=== PATIENT | male | born 1950 | race Caucasian/White ===

== ENCOUNTER 2023-12-03 21:07 | Observation (INO) | payer MEDICARE, BC, SELFPAY ==
[2023-12-03] VITALS (8 sets, daily range): BP systolic 161–193; BP diastolic 92–100; PULSE 54; BMI 28.1; BMI 27.9
--- NOTE | 2023-12-03 19:17 | ED.GENMED ---
History of Present Illness
General
Chief Complaint: Headache
Source: patient and spouse
Exam Limitations: none
Time Seen by Provider: 12/03/23 18:58
Travel History
Have you had any contact with someone who has COVID-19?: No
Do you have any symptoms of coronavirus? Fever > 100 degrees, chills, cough, shortness of breath, sore throat, loss of taste or smell, muscle aches, or headache?: No
History of Present Illness
History of Present Illness:
See MDM
Past History
Past History
ED Past Medical History: HTN
ED Past Surgical History: None
Social History
Tobacco: Non-smoker
Alcohol: None
Phy Exam
Physical Exam
Physical Exam:
See MDM
Scores
NIH Stroke Score
Level of Consciousness: 0 - Alert
LOC Questions: 0-Answers both correctly
LOC Commands: 0-Performs both correctly
Best Horizontal Gaze: 0-Normal
Visual Roe: 0=Normal, no visual loss
Facial Palsy: 0=Normal, symmetrical
Motor - Right Arm: 0=No drift 10 seconds
Motor - Left Arm: 0=No drift 10 seconds
Motor - Right Le-No drift 5 seconds
Motor - Left Le-No drift 5 seconds
Limb Ataxia: 0-Absent
Sensation: 0-Normal
Best Language: 0-No aphasia
Dysarthria: 0-Normal
Extinction and Inattention: 0-No abnormality
Total Score:: 0
Course
Orders/Labs/Results
Orders:
Orders
12/03/23 16:[address] [CT Head W/o Iv Contrast] Urgent
Comment:
Reason For Exam: HEADACHE/DOUBLE VISION
12/03/23 19:18
Complete Blood Count/With Diff Urgent
Comprehensive Metabolic Panel Urgent
Magnesium Urgent
12/03/23 20:49
Admit/Transfer Patient As Directed
Co-Sign Provider:
Level of Care: Observation services
Assign to:: Telemetry
Physician / Group: darek hoffman
Diagnosis: TIA
Reason for Telemetry: CVA/TIA
Date to Stop Telemetry: 12/06/23
Time to Stop Telemetry: 11:00
12/03/23 20:50
Code Status As Directed
Resuscitation Status: Full Code
12/06/23 11:00
DC Protocol for Telemetry ONCE
Abnormal Lab Results
12/03/23
19:18
RBC 3.89 L 10^6/uL
(4.70-6.10)
Hct 35.3 L %
(39.0-52.0)
MCH 33.7 H pg
(27.0-31.0)
MCHC 37.1 H g/dL
(33.0-37.0)
Monocytes % 10.0 H %
(1.7-9.3)
Sodium 133 L mmol/L
(135-145)
12/03/23 19:18
12/03/23 19:18
Vital Signs
Initial and Last Documented VS:
Initial Vital Signs
Temp Pulse Resp BP Pulse Ox
98.7 F 53 17 161/94 99
12/03/23 16:12 12/03/23 16:12 12/03/23 16:12 12/03/23 16:12 12/03/23 16:12
Last Documented Vital Signs
Temp Pulse Resp BP Pulse Ox
98 F 52 15 193/95 96
12/03/23 19:34 12/03/23 21:04 12/03/23 21:04 12/03/23 21:04 12/03/23 21:04
MDM/Problems Addressed
Differential Diagnosis Includes:
HPI and MDM Narrative:
73-year-old male presenting for evaluation of headache and double vision. He states the headache occurred a few days ago. He noticed the double vision yesterday. It appears to be binocular. When he covers each individual eye separately, the
blurry vision and double vision goes away. He states he sees 2 of everything. He has a history of high blood pressure but denies any other significant past medical history.
On exam, there is no focal deficits. Pupils equal reactive bilaterally. EOMI. CT head was performed prior to my assessment and was read as normal. Given his issues, will obtain basic blood work and ultimately admit
Physical exam
General: Well appearing and non-toxic
HEENT: protecting airway. Pupils equal reactive. EOMI
Neck: appears supple
CV: No evidence of cyanosis
Resp: No accessory muscle use
Abd: Non-distended
Extremities: No deformities
Neuro: alert. No focal deficits
Psych: Normal affect
Skin: Intact
Problems Addressed including Acute and Chronic Conditions affecting care:
1. Diplopia
Acuity: acute
Prognosis: unstable
Details: given his issues, will obtain basic blood work. Will ultimately admit to rule out aneurysm versus stroke
Updates
Blood work without clinical significance. Given his ongoing symptoms, will admit for further workup
Differential Diagnosis (but not limited to): Intracranial aneurysm, stroke, hyponatremia
Testing considered: CTA head and neck
Drug therapy (if applicable): OTC meds, please see d/c instruction regarding Rx drugs
Amount and/or Complexity of Data Reviewed
Clinical info obtained from: Patient
External data reviewed: N/A
Labs I independently reviewed (but not limited to): Sodium 133 but remainder of chemistry lab normal
Radiology: The CT scan was personally and independently reviewed. In addition, official CT report reviewed.
Pulse Ox: not hypoxic
EKG independently reviewed: N/A
Kayak Maker: N/A
Critical Care: N/A
Risk of Complication:
Social Determinants of health: Good social support
Discussed with other providers: Hospitalist
Escalation of Care includes Admit/Obs: Given the ongoing diplopia, will admit for further workup
Occasional wrong word or 'sound a like' substitutions may have occurred due to the inherent limitations of voice recognition software. Read the chart carefully and recognize, using context, where substitutions have occurred.
*Critical Care Note
Total Time (30-74mins, 75-104mins- exclusive of procedures): Not Applicable
ED Attending Note
-
Portions of this chart may have been created with voice recognition software.� Occasional wrong word or��sound alike� substitutions may have occurred due to the inherent limitations of voice recognition software.
Discharge Plan
Departure
Patient Disposition: Admit
Date of Disposition: 12/03/23
Time of Disposition: 20:34
Admit to: Med/Surg
Presentation/result/management discussed w/ accepting MD/DO: Hospitalist
Discharge Problem:
Diplopia
Interventions
Interventions:
*Risk Screen - Suicide Last Done: 12/03/23 16:12
*General Assessment Last Done: 12/03/23 16:12
*Neglect/Abuse Screening Last Done: 12/03/23 17:57
ED- Fall Risk Assessment Last Done: 12/03/23 17:57
*ED COVID-19 Vaccine History Last Done: 12/03/23 17:57
ED- Neurological Assessment Last Done: 12/03/23 19:34
[2023-12-03 19:30] LABS: % Basophils 0.7 % (0-2); % Eosinophils 2.4 % (0-6); % Immature Granulocytes 0.3 % (0-0.5); % Lymphocytes 27.6 % (20.5-51.1); Absolute Eosinophils 0.1 10^3/uL (0-0.7); Absolute Lymphocytes 1.6 10^3/uL (1.2-3.4); Absolute Monocytes 0.6 10^3/uL (0.1-0.6); Absolute Neutrophils 3.4 10^3/uL (1.4-6.5); Hematocrit 35.3 % (39.0-52.0); Hemoglobin 13.1 g/dL (13.0-18.0); Mean Corp Hgb Conc. 37.1 g/dL (33.0-37.0); Mean Corpuscular Hgb 33.7 pg (27.0-31.0); Mean Corpuscular Volume 90.7 fL (80.0-94.0); Mean Platelet Volume 9.3 fL (7.4-10.4); Nucleated Red Blood Cells % 0 % (-); Platelet Count 176 10^3/uL (130-400); Red Blood Cell Count 3.89 10^6/uL (4.70-6.10); Red Cell Dist. Width 12.4 % (11.5-14.5); White Blood Cell Count 5.8 10^3/uL (4.8-10.8)
[2023-12-03 19:44] LABS: ALT (SGPT) 25 U/L (0-50); AST (SGOT) 30 U/L (17-59); Albumin 4.1 g/dl (3.5-5.0); Alkaline Phosphatase 64 U/L (38-126); Blood Urea Nitrogen 15 mg/dl (9-20); Calcium 9.4 mg/dl (8.4-10.2); Carbon Dioxide 27 mmol/L (22-30); Chloride 98 mmol/L (98-107); Estimated Creatinine Clearance 70 ml/min; Glucose 88 mg/dl (70-99); Potassium 3.9 mmol/L (3.5-5.1); Sodium 133 mmol/L (135-145); Total Bilirubin 0.5 mg/dl (0.2-1.3); eGFR > 60.00
--- NOTE | 2023-12-03 20:32 | HPS.HSE ---
Addendum entered and electronically signed by WILD Suresh 12/08/23 12:25:
Home Medications Table - record
Medication Instructions Recorded Confirmed
acetaminophen 325 mg tablet 650 mg PO BIDPRN PRN headaches 12/03/23 12/03/23
(Tylenol)
clonazepam 0.5 mg tablet 0.25 mg PO HSPRN PRN anxiety 12/03/23 12/03/23
ezetimibe 10 mg tablet (Zetia) 10 mg PO QPM High Cholesterol 12/03/23 12/03/23
labetalol 300 mg tablet 300 mg PO TID Blood Pressure 12/03/23 12/03/23
minoxidil 2.5 mg tablet 2.5 mg PO TID Blood Pressure 12/03/23 12/03/23
peg 400-propylene glycol 0.4 %-0.3 1 drp ophthalmic (eye) HS dry eyes 12/03/23 12/03/23
% eye liquid gel drops
terazosin 5 mg capsule 5 mg PO HS bladder 12/03/23 12/03/23
therapeutic multivitamin 1 tab PO DAILY Supplement 12/03/23 12/03/23
trazodone 50 mg tablet 25 mg PO HS PRN sleep 12/03/23 12/03/23
lisinopril 10 mg tablet 10 mg PO BID #60 tabs 12/04/23
Addendum entered and electronically signed by Karthik Bliss MD 12/03/23 21:23:
I saw and examined the patient.
The BEEKEEPER FARMER or PA's note was reviewed and I agree with the note.
Comment:
Patient is a pleasant 73 years old with history of hypertension, hyperlipidemia who came to the ER with right-sided headache, facial pain, blurry vision, dizziness, lightheaded.
Blood pressure is elevated in the ER.
CT head came back shows no acute finding.
Patient seen and examined at bedside, denies any chest pain or shortness of breath, no abdominal pain, no nausea, no vomiting, no diarrhea or constipation.
No prior history of similar event.
Patient will be admitted under hospitalist service.
Physical exam:
GENERAL : Patient is awake, alert, oriented x3
HEENT: Nonicteric sclerae, PERRLA, EOMI. Oropharynx clear. Moist mucous membranes. Conjunctivae appear well perfused.
CHEST: Chest wall is nontender.
HEART: Regular rate and rhythm without murmurs.
LUNGS: Clear to auscultation bilaterally.
ABDOMEN: Soft, positive bowel sounds, nontender, no organomegaly.
RECTAL: Deferred.
SKIN: No rash, no excessive bruising, petechiae, or purpura.
NEUROLOGIC: Diplopia-tender temporal region.
Assessment/plan:
Right-sided headache associated with diplopia, tender on the temporal area, rule out giant cell arteritis
Check stat ESR/C-reactive protein
Consider start high-dose steroid
Neurology consult
MRI brain
Original Note:
Family Physician
-
Family Physician: Leo Del Valle
Chief Complaint
-
CRAVEN
History of Present Illness
73 year old with malignant HTN, HLD presented to us with right sided CRAVEN, facial and eye ball pain. stated dizzy, lightheaded worse when turning head side to side. patient also complained of double vision when both eyes are open, but improved when
one eyes are closed. denied any n/v. denied fever, chills, chest pain ,sob. denied abdominal pain, diarrhea. denied dysuria or hematuria.
Head CT head negative. noted hypertensive. admitting for further management.
Medical History
Past Medical History
Past Medical History: Reports Other
Additional Past Medical History:
malignant HTN
HLD
Past Surgical History: Reports Other
Additional Past Surgical History:
b/L LE surgery
Social History
Tobacco: Non-smoker
Alcohol: None
Drug: None
Living: With Family
Family History
Family History: Not pertinent
Allergies / Home Medications
Allergies reflects when Allergies were last updated in [facility].
Home Medications with original date entered in [facility]
Allergy/Medication List:
Allergies
Allergy/AdvReac Type Severity Reaction Status Date / Time
No Known Allergies Allergy Unverified 12/03/23 16:16
Review of Systems
-
Constitutional: Reports No Symptoms
EENT: Reports No Symptoms
Respiratory: Reports No Symptoms
Cardiac: Reports No Symptoms
Abdomen/GI: Reports No Symptoms
: Reports No Symptoms
Musculoskeletal: Reports No Symptoms
Skin: Reports No Symptoms
Neurological: Reports Dizzy and Headache
Endocrine: Reports No Symptoms
Hematologic/Lymphatic: Reports No Symptoms
Psych: Reports No Symptoms
Physical Exam
Vital Signs
Vital Signs
Temp Pulse Resp BP Pulse Ox
98 F 54 18 183/92 96
12/03/23 19:34 12/03/23 19:34 12/03/23 19:34 12/03/23 19:34 12/03/23 19:34
Physical Exam
General: Well Developed, Well Nourished and No Apparent Distress
HEENT: NormoCephalic, Moist mucous membranes and Atraumatic
Respiratory: Clear
Cardiac: S1/S2 and Regular Rhythm; No Murmur or Rub
GI: Soft, Non Tender, Non Distended and Normal Bowel Sounds; No Organomegaly
Rectal: Deferred by Provider
Musculoskeletal: No Clubbing, No Cyanosis and No Edema
Skin: No Rash
Neuro: AO x 3 and Nonfocal/grossly intact
Psych: Calm
Laboratory Results
-
12/03/23 19:18
12/03/23 19:18
Laboratory Results
Total Bilirubin 0.5 mg/dl (0.2-1.3) 12/03/23 19:18
AST 30 U/L (17-59) 12/03/23 19:18
ALT 25 U/L (0-50) 12/03/23 19:18
Alkaline Phosphatase 64 U/L (38-126) 12/03/23 19:18
Data Reviewed
-
CT Scan: Report Reviewed by me
Lab Data: Labs Reviewed by me
Impression/Plan
-
#Diplopia/headache/right facial pain r/o acute CVA vs temporal arteritis/trigeminal neuralgia
-CT head with no acute findings
-obtain MRI in am
-aic, lipid profile
-asa,statin
-neurology consulted
#malignant HTN
-labetalol 300mg tic
-terazosin continued
#HLD
-zetia continued
#DVT prophylaxis
-scd
#CODE status
-full code
[2023-12-03 21:47] LABS: C-Reactive Protein < 5.00 mg/L (0.0-10.00)
[2023-12-03 21:55] LABS: Erythrocyte Sed Rate 3 mm/hour (0-20)
[2023-12-03] MEDS: TRANDATE PO (23:06)
[2023-12-03] MEDS: LIPITOR 40 MG PO (23:10)
[2023-12-03] MEDS: HYTRIN 5 MG PO (23:10)
[2023-12-03] MEDS: ZETIA 10 MG PO (23:10)
[2023-12-03] MEDS: LONITEN 2.5 MG PO (23:11)
--- NOTE | 2023-12-04 01:31 | PTCARENOTE ---
Patient received from ED via stretcher and was assisted to bed by staff. He was oriented to room and surroundings. NIH -0. Patient continues with c/o right facial pain and blurred vision that is not present when one eye is covered. BP 195/92 Tele
Sinus concetta with HR in the 40's. Discussed with ADOPTION COUNSELOR, covering house. Labetalol held as per parameter, other meds as ordered, see E mar. Breath sounds are CTA Sat 94% on room air. CPAP at HS placed by respiratory therapist. Patient tolerated
boxed lunch. Voiding clear yellow urine in urinal. Will call for assistance out of bed. Stroke packet given. SCDs as ordered.
[2023-12-04 03:47] VITALS: BP 124/72
[2023-12-04 06:59] LABS: Hematocrit 35.7 % (39.0-52.0); Hemoglobin 13.1 g/dL (13.0-18.0); Mean Corp Hgb Conc. 36.7 g/dL (33.0-37.0); Mean Corpuscular Volume 92.7 fL (80.0-94.0); Mean Platelet Volume 9.9 fL (7.4-10.4); Platelet Count 177 10^3/uL (130-400); Red Blood Cell Count 3.85 10^6/uL (4.70-6.10); Red Cell Dist. Width 12.3 % (11.5-14.5); White Blood Cell Count 5.6 10^3/uL (4.8-10.8)
[2023-12-04 07:06] VITALS: BP 169/90
[2023-12-04 07:27] LABS: Blood Urea Nitrogen 16 mg/dl (9-20); Carbon Dioxide 26 mmol/L (22-30); Chloride 100 mmol/L (98-107); Estimated Creatinine Clearance 61 ml/min; Glucose 86 mg/dl (70-99); HDL Cholesterol 71 mg/dl; LDL Cholesterol, Calculated 88 mg/dl; Potassium 4.3 mmol/L (3.5-5.1); Sodium 130 mmol/L (135-145); Total Cholesterol 172 mg/dl (50-199); Triglyceride 66 mg/dl (10-149); Very Low Density Lipoprotein 13 mg/dl (0-30); eGFR > 60.00
--- NOTE | 2023-12-04 07:48 | W.PN.HOSP.TC ---
Today's Communication/Plan
-
Cleared by neurology for discharge home today if MRI negative
Assessment / Plan
Assessment / Plan
HPI: 73 years old with history of hypertension, hyperlipidemia who came to the ER with right-sided headache, facial pain, blurry vision, dizziness, lightheaded.
Blood pressure is elevated in the ER.
CT head came back shows no acute finding.
#Headache/diplopia
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
Recommend patching 1 eye, treat hypertension
Can be discharged once MRI returns as negative
#Malignant HTN
Continue labetalol 300 mg 3 times daily, terazosin
#HLD
Continue Zetia
DVT prophylaxis�SCDs
Full code
Physical Exam
General: No acute distress
HEENT: Normocephalic, Atraumatic, EOMI, MMM
Respiratory: Clear to Auscultation bilaterally
Cardiac: Normal S1/S2, Regular Rate and Rhythm
GI: Soft, Nontender, Nondistended, Normal Bowel Sounds
Extremities: No Clubbing, Cyanosis, or Edema
Neuro:
Left eye hypertropia and impaired depression of the left eye in adduction
Psych: Calm, Cooperative
Derm: No Visible lesions
Anticipated Discharge: Within 24 hours
Subjective/Interval History
-
Date of Service: December 04, 2023
Continues to have headache and diplopia. No weakness, no slurred speech.
Objective Data
-
Labs:
Laboratory Results
12/04/23
05:52
WBC 5.6
Hgb 13.1
Hct 35.7 L
Plt Count 177
Sodium 130 L
Potassium 4.3
Chloride 100
Carbon Dioxide 26
BUN 16
Creatinine 0.9
Glucose 86
Calcium 9.0
Vital Signs:
Vital Signs
Temp Pulse Resp BP Pulse Ox
97.9 F 56 22 169/90 94
12/04/23 07:06 12/04/23 07:06 12/04/23 07:06 12/04/23 07:06 12/04/23 07:06
I&O
12/03/23 12/04/23 12/05/23
06:59 06:59 06:59
Intake Total 240 / 240
Output Total 700 / 700
Balance -460 / -460
[2023-12-04] MEDS: TRANDATE 300 MG PO ×2 (08:19→16:34)
[2023-12-04] MEDS: FLUSH (NSS) 1 FLUSH IV (08:19)
[2023-12-04] MEDS: TYLENOL 650 MG PO ×2 (08:19→16:46)
[2023-12-04] MEDS: LOW STRENGTH ASPIRIN 81 MG PO (08:19)
--- NOTE | 2023-12-04 08:33 | CON.NEURO4 ---
Consultation - Neurology 4
-
CONSULTING PHYSICIAN:
REFERRING PHYSICIAN:
DICTATED BY:
DATE/TIME OF REQUEST:
DATE/TIME OF CONSULTATION:
Reason for Consultation:
History of Present Illness:
Patient is a 73-year-old right-handed man with a past ministry of hypertension hyperlipidemia presented to hospital because of symptoms of right forehead pain and then generalized headache along with binocular diplopia starting in the past 2 to 3
days.
Patient reports that he has no head or neck trauma whatsoever. No chronic ocular conditions and no injuries to the eye. Notes that his symptoms for started around 2 3 2 days ago with right-sided temporal area. He has noticed binocular diplopia
which clearly goes away when covering either eye. The diplopia is generally worse when looking down and with closer objects rather than distant objects. The diplopia is not strictly horizontal but rather has a diagonal component. With each eye
close the vision appears normal. No recent swelling or redness or purulence of the eye. No facial or limb numbness. No slurred speech no hearing change. He does report headaches in the morning going on for about the past 1 to 2 months. He
denies jaw claudication, unusual weight loss, fever chills or myalgias. Denies any history of stroke. No walking difficulties or limb weakness or ataxia or vertigo.
Past Medical History: Hypertension, hyperlipidemia
Surgical History: Denies
Family History: Hypertension, stroke in brother and father at middle elderly age
Social History: Works department store manager as cashiers supervisor, and lives with his , no tobacco, 1 glass of wine every few weeks, no recreational drugs
Allergies: No known drug allergies
Review of Symptoms:
Patient denies any fever, headache, chest pain, shortness of breath, GI or symptoms.
Physical Exam:
Well-appearing middle elderly age man appears his stated age, well-groomed and nourished, good musculature, no head or neck trauma no ptosis, no double erythema or periorbital edema erythema or outward abnormality of the eyes or surrounding tissues,
neck supple for range of motion no neck masses, oropharynx clear, heart rate regular breathing unlabored abdomen soft nontender no lower extremity edema seen.
Neurologic Examination:
The patient is awake, alert and oriented x 3. He is able to follow commands and answer questions appropriately. There is no aphasia or dysarthria. On cranial nerve assessment, pupils are 3 mm bilateral, round and reactive to light and
accommodation, no pupillary asymmetry or ptosis seen. Vision 20/20 to near card testing in OS and OD. Visual garcia are full. No nystagmus seen on EOM's. On EOM there appears to be a left eye hypertropia and impaired depression of the left eye in
adduction. Normal upgaze in both eyes. Normal abduction in both eyes. Diplopia and hypertropia worsens with rightward gaze and worsens with depression in rightward gaze. Diplopia worsens with left head tilt. Facial sensations are intact and
bilaterally symmetrical to light touch, there is no facial asymmetry. Hearing is intact bilaterally to normal conversation volume. Tongue palate and uvula are midline. Sternocleidomastoid strengths are full bilaterally. Motor strengths are 5/5
bilateral upper and lower extremities on medical research [place] scale. There is no drift or involuntary movement noted. Deep tendon reflexes are 2+ bilateral upper and lower extremities and Babinski is absent bilaterally. Sensations of pain,
touch, temperature and vibration are intact and bilaterally symmetrical. There was no extinction noted on double simultaneous stimulation. Coordination is intact by finger to nose bilaterally.
Neuro Imaging:
CT head non contrast unremarkable
MRI brain and MRA head pending.
Impressions
1. Most likely a cranial nerve/4 palsy causing headache and diplopia, with the most likely etiology being chronic hypertension. Cranial nerve 4 palsies are usually very subtle and difficult on examination of extra ocular movements. Would
estimate that the patient has left cranial nerve 4 palsy since there appears to be left eye hypertropia, impaired depression in left eye adduction and worsening of hypertropia and diplopia with left head tilt and right and downward gaze.
Alternatively could be a partial right sided cranial nerve 3 palsy with weakness of right superior rectus muscle. Appears to be an isolated cranial nerve palsy without evidence to suggest multiple cranial neuropathies and no outward signs on exam
that suggest cavernous sinus lesion or vascular abnormality in the carotid or ophthalmic artery systems. MRI of the brain with and without contrast and MRA of the head would be prudent to evaluate for cavernous sinus pathology, or vessel
abnormalities such as aneurysm.
2. Negative ESR/CRP and no jaw claudication make giant cell arteritis very unlikely
3.
4.
Patient has the following risk factors for their symptoms: Hypertension
Recommendations:
1. Check MRI of the brain with and without contrast and MRA of the head
2. Eye patching will help with diplopia and headaches that can come with diplopia
3. Tylenol PRN for headaches
4. Not recommending steroids
5. Continued treatment of hypertension
6. Outpatient neurology follow up in 4-6 weeks
7. Outpatient ophthalmology follow up
Total time = 75 minutes
Discussed patient care with: Patient and hospitalist
[2023-12-04 09:40] VITALS: BP 166/93; PULSE 56; O2SAT 97
--- NOTE | 2023-12-04 09:46 | CM ---
division service manager reviewed patient's chart and met with patient and patient was admitted under Obs, PORTILLO letter provided to patient. Patient lives with spouse in a one story home with 2 steps to enter, patient is independent with adl's and ambulation,
patient has a CPAP, patient has a prescription plan and patient uses [facility] pharmacy.
PCP: Dr. Del Valle
Plan; Home no needs when stable.
[2023-12-04] MEDS: LONITEN 2.5 MG PO ×2 (10:09→16:34)
[2023-12-04 10:32] VITALS: BP 144/91
--- NOTE | 2023-12-04 10:48 | PTOTSP ---
Speech Therapy
Presentation: Patient's speech, language, and cognition appeared to be WNL during informal conversation with MOVIE SHOT CAMERAMAN.
Swallowing Function: MOVIE SHOT CAMERAMAN observed patient with several bites of cracker and sips of thin liquids (straw sips) in which patient appeared to tolerate as he did not exhibit any overt clinical s/sx of aspiration or difficulty with mastication/
manipulation. Patient denied any dysphagia complaints.
Per RN, patient tolerated medications whole with thin liquids and meals (regular consistency solids and thin liquids).
Recommendations:
1) Regular consistency solids and thin liquids
2) Standard aspiration precautions
3) Medications whole with thin liquids
Plan: No further speech intervention is indicated as patient appears to be demonstrating his baseline functioning. MOVIE SHOT CAMERAMAN will sign off at this time.
[2023-12-04 11:41] LABS: Glycohemoglobin (HgbA1c) 5.3 % (4.0-5.6)
[2023-12-04 15:34] VITALS: BP 169/85
--- NOTE | 2023-12-04 18:00 | W.DCSUMMARY ---
Discharge Summary
Discharge Data
Date of Admission: 12/03/23
Date of Discharge: 12/04/23
-
Pending Results: No
Hospital Course
Discharge diagnosis:
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
Headache/diplopia
Malignant hypertension
Hyperlipidemia
Consults: Neurology
Brain MRI:
No evidence of acute intracranial abnormality.
�
Hospital course:
73-year-old male with a past medical history of hypertension, anxiety, and hyperlipidemia was admitted for headache, double vision, lightheadedness and dizziness. Head CT in the ER was negative.
Patient was seen in conjunction with neurology, who suspects a 4th cranial nerve palsy. Brain MRI is negative. Neurology recommends controlling his malignant hypertension. Neurology also recommends using an eye patch to prevent double vision, and
following up with ophthalmology in the office.
Patient was continued on his labetalol 300 mg 3 times a day, minoxidil 2.5 mg 3 times a day for his hypertension. His blood pressure improved. Will also add lisinopril 10 mg twice a day to help with his blood pressure.
He is medically stable and cleared by neurology for discharge. He needs to follow-up with his primary care doctor in 1 week, ophthalmology and neurology in the office.
Disposition: Home self-care
Discharge planning: Required 38 min
Discharge Plan
-
Patient Disposition: Home (Routine Discharge)
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
Condition: Fair
Diet: Regular
Activity: As tolerated
Activity Restrictions/Additional Instructions:
You do not have a stroke, your MRI does not show any stroke.
Please continue using your eye patch to prevent double vision.
May only drive if you are wearing your eye patch.
Follow-up with your primary care doctor in 1 week, ophthalmology in 1-2 weeks, and neurology in 4-6 weeks.
Referrals:
Arin Rodriguez CRNP [Specified Professional Personl] - in four to six weeks
Joey Garcia MD [Active] - in two to three weeks
Leo Del Valle DO [Family Provider] - in one week
Prescriptions:
Continued
terazosin 5 mg Capsule
5 mg PO HS
trazodone 50 mg Tablet
25 mg PO HS PRN (Reason: sleep)
acetaminophen [Tylenol] 325 mg Tablet
650 mg PO BIDPRN PRN (Reason: headaches)
clonazepam 0.5 mg Tablet
0.25 mg PO HSPRN PRN (Reason: anxiety)
therapeutic multivitamin Tablet
1 tab PO DAILY
minoxidil 2.5 mg Tablet
2.5 mg PO TID
labetalol 300 mg Tablet
300 mg PO TID
ezetimibe [Zetia] 10 mg Tablet
10 mg PO QPM
peg 400-propylene glycol 0.4-0.3 % Drops, Liquid Gel
1 drp OPHTHALMIC (EYE) HS
Discharge Orders:
Discharge Patient (As Directed); Ordered 12/04/23
Ordered By: Josh Crouch
[2023-12-04 18:51] VITALS: BP 102/72
[2023-12-04] MEDS: ZETIA 10 MG PO (19:01)
[2023-12-04] MEDS: LIPITOR PO (19:02)
== END 2023-12-04 20:06 | disposition home or self-care (01) ==
LOC: 4 EAST ACU 21:07
PROVIDERS: Registered Nurse; ADMITTING PHYSICIAN General Practice; ATTENDING PHYSICIAN Family Medicine; CONSULT PHYSICIAN Student in an Organized Health Care Education/Training Program; EMERGENCY PHYSICIAN Student in an Organized Health Care Education/Training Program; FAMILY PHYSICIAN Internal Medicine
DX: R51.9 Headache, unspecified (principal); H53.2 Diplopia; R42 Dizziness and giddiness; H53.8 Other visual disturbances; I10 Essential (primary) hypertension; E78.5 Hyperlipidemia, unspecified; Z82.3 Family history of stroke; Z82.49 Family history of ischemic heart disease and other diseases of the circulatory system
CPT/HCPCS: 70450; 70544; 70553; 80048; 80053; 80061; 83036; 83735; 85025; 85027; 85652; 86140; 92610; 94660; 96374; 96375; 97116; 97161; 97166; 99285; A9575; G0378